=== PATIENT | male | born 1985 ===

== ENCOUNTER 2022-05-27 12:16 | Outpatient (CLI) | payer OTHER, SELFPAY ==
--- NOTE | 2022-05-27 13:04 | XRR_ITS ---
PROCEDURE INFORMATION: Exam: XR Right Tibia and Fibula Exam date and time: 05/27/2022 1:06 PM Age: 36 years old Clinical indication: Right; Patient HX: Lower leg pain, pain started 3 days prior while running on treadmill; Additional info: Right lower leg pain, distal, medial tibia pain. TECHNIQUE: Imaging protocol: Radiologic exam of the Right tibia and fibula. Views: 2 views. COMPARISON: No relevant prior studies available. FINDINGS: Bones/joints: Normal. Soft tissues: Normal. XR/XR tibia fibula RT 2V [id number] IMPRESSION: No acute findings.
== END 2022-05-27 12:17 | disposition home or self-care (01) ==
LOC: RAD 12:19
PROVIDERS: PCP Family Medicine; Visit Provider Family Medicine
DX: M79.604 Pain in right leg (principal)
CPT/HCPCS: 73590

== ENCOUNTER → 2022-07-06 07:07 | Outpatient (BNVA) | payer OTHER, SELFPAY | PROVIDERS: PCP Family Medicine; Visit Provider Student in an Organized Health Care Education/Training Program | DX: S99.911A Unspecified injury of right ankle, initial encounter (principal); Y93.A1 Activity, exercise machines primarily for cardiorespiratory conditioning | CPT/HCPCS: 73610 ==

== ENCOUNTER 2022-09-02 13:50 | Outpatient (CLI) | payer OTHER, SELFPAY ==
--- NOTE | 2022-09-02 13:45 | MR_ITS ---
WS: [id number] INDICATION: RIGHT leg pain. Pain with running TECHNIQUE: MRI of the RIGHT lower leg without gadolinium enhancement. Sagittal PD, sagittal STIR, axi al PD, axial T1, coronal PD, coronal T2 fat sat, coronal STIR imaging. FINDINGS: Marker is in the anterior medial lower leg just above the ankle. Mild induration the underlying soft tissues. No evidence of drainable fluid collection or abscess. Prominent superficial distended greate r saphenous vein in this area suspicious for thrombophlebitis. This can be further evaluated ultrasou nd. This likely corresponds to the area of interest. Distal Achilles is normal in appearance. Normal bone marrow signal in the calcaneus. Normal bone zaire ow signal in the talus. Normal talonavicular articulation. Normal tibial plafond. Base of the 5th met atarsal is normal. Normal cuboid. Normal cuneiforms. Tiny amount of subchondral cystic change in the talar neck. No significant edema. Small amount of inc reased signal with chronic appearing tear of the peroneus brevis with tendinopathy. Normal extensor a nd flexor compartment tendons. No other suspicious findings. MR/MR lower leg RT wo con* [id number] IMPRESSION: 1. Deep to the palpable marker in the anterior medial lower leg is prominent g reater saphenous vein suspicious for thrombophlebitis. This can be further eval uated with ultrasound. Recommend clinical correlation. Small amount of subcutan eous edema in this area. 2. Normal bone marrow signal in the underlying tibia. No visualized stress fra ctures. 3. Normal medial and lateral malleolus. 4. Chronic appearing intrasubstance tear and/or tendinopathy involving the per ingram brevis. 5. Distal Achilles is normal in appearance. 6. Normal extensor and flexor compartment tendons.
== END 2022-09-02 13:51 | disposition home or self-care (01) ==
PROVIDERS: PCP Family Medicine; Visit Provider Student in an Organized Health Care Education/Training Program
DX: M79.604 Pain in right leg (principal)
CPT/HCPCS: 73718

== ENCOUNTER 2022-09-28 06:32 | Outpatient (CLI) | payer OTHER, SELFPAY ==
--- NOTE | 2022-09-28 06:30 | USCV_ITS ---
Francisco J Stinson ([place]) Age: 37 Gender: M : 1985 Exam Date: 09/28/2022 06:48 Ordering Phys: Jamil Lucas DO Technologist: ANTON [place]am Location[place] [facility] [place]: Pain HISTORY: PT has RLE pain since June when when tweked his ankle running on a treadmill. Pt states he had an MRI that showed a blood clot in the RT GSV. PROCEDURES: Venous duplex imaging was performed in only the right lower extremity. The following venous structures were evaluated: common femoral vein, profunda vein, proximal portion of the greater saphenous vein, superficial femoral vein, and the popliteal vein. In addition, the posterior tibial and peroneal trunk were evaluated. On the right side, the common femoral, superficial femoral, profunda femoral, popliteal, posterior tibial, greater saphenous veins and the peroneal trunk were identified and interrogated in the standard fashion. These veins were found to be easily compressible with spontaneous blood flow. No evidence of insufficiency or thrombus noted. FINDINGS: Normal 2-D Doppler and augmentation and compressibility throughout the lower extremity venous structures. Additional imaging through the proximal calf veins also reveals no thrombus. Limited evaluation of the greater saphenous vein is patent with no thrombus. CONCLUSIONS No DVT right lower extremity. Dr. Marlee Norris DO (Electronically Signed) Final Date: 28 September 2022 07:41 S
== END 2022-09-28 06:33 | disposition home or self-care (01) ==
LOC: RAD 06:33
PROVIDERS: PCP Family Medicine; Visit Provider Student in an Organized Health Care Education/Training Program
DX: M79.661 Pain in right lower leg (principal)
CPT/HCPCS: 93971